=== PATIENT | male | born 1990 | race Caucasian/White ===

== ENCOUNTER 2018-08-03 18:36 | Emergency (ER) | payer SELFPAY ==
[~2018-08-03] VITALS: Ht 188 cm; Wt 63.0 kg
[2018-08-03] MEDS ORDERED: SODIUM CHLORIDE 0.9% 1,000 ML IV ONE (20:33)
[2018-08-03 20:56] LABS: BG BASE EXCESS 2.3 mmol/L (-2.0-2.0); BG CARBOXYHEMOGLOBIN 0.6 % (0.5-1.5); BG DEOXYHEMOGLOBIN 2.8 % (0.0-5.0); BG FRACTION INSPIRED OXYGEN 21; BG HCO3 ACT 26.4 mmol/L (22.0-26.0); BG METHEMOGLOBIN 0.2 % (0.0-1.5); BG OXYGEN SATURATION 97.2 % (92.0-98.5); BG OXYHEMOGLOBIN 96.4 % (94.0-97.0); BG PCO2 39.1 mmHg (35.0-45.0); BG PH 7.447 (7.350-7.450); BG PO2 95.9 mmHg (75.0-100.0); BG SAMPLE SITE RIGHT BRACHIAL; BG TOTAL HEMOGLOBIN 12.1 g/dL (12.0-18.0); BG VENT MODE ROOM AIR
[2018-08-03] MEDS ORDERED: KETOROLAC 30MG/ML VIAL IV ONE (21:15)
[2018-08-03 21:34] LABS: BASOPHILS % 0.3 % (0.0-2.0); HEMATOCRIT. 31.7 % (42.0-52.0); HEMOGLOBIN. 11.3 g/dL (14.0-18.0); LYMPHOCYTES % 28.3 % (20.0-50.0); MEAN CORPUSCULAR HEMOGLOBIN 29.3 pg (28.0-32.0); MEAN CORPUSCULAR VOLUME 82.5 fL (80.0-94.0); MEAN PLATELET VOLUME 7.9 fl (7.4-10.4); MONOCYTES % 9.2 % (2.0-8.0); NEUTROPHILS % 60.2 % (40.0-76.0); PLATELET 328 x1000/uL (130-400); RED BLOOD CELL COUNT 3.84 mill/uL (4.7-6.1); RED CELL DISTRIBUTION WIDTH 13.4 % (11.6-14.6)
[2018-08-03 21:40] LABS: CHLORIDE 93 mEq/L (98-107)
[2018-08-03 21:47] LABS: BETA HYDROXYBUTYRATE 0.3 mMol/L (0.0-0.3)
[2018-08-03 22:24] LABS: CLARITY URINE CLEAR (CLEAR); COLOR URINE YELLOW (YELLOW); KETONES URINE NEGATIVE (NEGATIVE); LEUKOCYTE ESTERASE URINE 2+ (NEGATIVE); NITRITE URINE NEGATIVE (NEGATIVE); OCCULT BLOOD URINE NEGATIVE (NEGATIVE); PROTEIN URINE NEGATIVE (NEGATIVE); SPECIFIC GRAVITY URINE 1.022 (1.005-1.030); UROBILINOGEN URINE 0.2 E.U./dL (0.2-1.0)
[2018-08-03 23:22] VITALS: BP 115/81
== END 2018-08-03 23:22 | disposition home or self-care (01) ==
LOC: ER 18:36
DX: R33.9 Retention of urine, unspecified (principal); E86.0 Dehydration; N13.2 Hydronephrosis with renal and ureteral calculous obstruction; E11.65 Type 2 diabetes mellitus with hyperglycemia; K83.1 Obstruction of bile duct
CPT/HCPCS: 36415; 36600; 51702; 71045; 74176; 80053; 81003; 82010; 82375; 82805; 82962; 84484; 85025; 87086; 93005; 96361; 96374; 99285; J1885; J7030; Z7610

== ENCOUNTER 2020-12-21 12:09 | Inpatient (IN) | payer MEDICAID ==
[~2020-12-21] VITALS: Ht 188 cm; Wt 63.5 kg
[~2020-12-21 12:09] MED LIST: DOCU250C14 PO; FERR325T23 PO
[2020-12-21] MEDS ORDERED: ONDANSETRON HCL 4MG/2ML INJ IV STA (12:28)
[2020-12-21] MEDS ORDERED: SODIUM CHLORIDE 0.9% 1,000 ML IV ONE ×2 (12:30→13:15)
[2020-12-21 13:07] LABS: BASOPHILS % 0.4 % (0.0-2.0); HEMATOCRIT. 25.1 % (42.0-52.0); HEMOGLOBIN. 8.4 g/dL (14.0-18.0); LYMPHOCYTES % 15.3 % (20.0-50.0); MEAN CORPUSCULAR HEMOGLOBIN 29.2 pg (28.0-32.0); MEAN PLATELET VOLUME 7.1 fl (7.4-10.4); MONOCYTES % 6.4 % (2.0-8.0); NEUTROPHILS % 75.9 % (40.0-76.0); PLATELET 244 x1000/uL (130-400); RED BLOOD CELL COUNT 2.88 mill/uL (4.7-6.1); RED CELL DISTRIBUTION WIDTH 15.7 % (11.6-14.6)
[2020-12-21 13:14] LABS: CHLORIDE 108 mEq/L (98-107)
[2020-12-21 13:25] LABS: PROTHROMBIN TIME 10.7 sec (9.6-11.0)
[2020-12-21 14:24] LABS: CLARITY URINE CLOUDY (CLEAR); COLOR URINE YELLOW (YELLOW); KETONES URINE NEGATIVE (NEGATIVE); LEUKOCYTE ESTERASE URINE 3+ (NEGATIVE); NITRITE URINE POSITIVE (NEGATIVE); OCCULT BLOOD URINE 1+ (NEGATIVE); PH URINE 5.5 (4.5-8.0); PROTEIN URINE 1+ (NEGATIVE); SPECIFIC GRAVITY URINE 1.012 (1.005-1.030); UROBILINOGEN URINE 0.2 E.U./dL (0.2-1.0)
[2020-12-21] MEDS ORDERED: CEFTRIAXONE 1 G PREMIX 50 ML IV NR (15:30)
[2020-12-21] MEDS ORDERED: FLUCONAZOLE 100MG TABLET PO NR (15:30)
[2020-12-21] MEDS ORDERED: ONDANSETRON HCL 4MG/2ML INJ IV PRN (18:00)
[2020-12-21] MEDS ORDERED: IPRATROPIUM/ALBUTEROL 0.5-3(2.5)MG/3ML NEB NEB PRN (18:00)
[2020-12-21] MEDS ORDERED: MAGNESIUM/ALUMINUM HYDROXIDE/SIMETHICONE 30ML UDC PO PRN (18:00)
[2020-12-21] MEDS ORDERED: DOCUSATE SODIUM 100MG CAPSULE PO PRN (18:00)
[2020-12-21] MEDS ORDERED: CLONIDINE 0.1MG TABLET PO PRN (18:00)
[2020-12-21] MEDS ORDERED: GUAIFENESIN 200MG/10ML SUGAR FREE UDC PO PRN (18:00)
[2020-12-21] MEDS ORDERED: ACETAMINOPHEN 325MG TABLET PO PRN (18:00)
[2020-12-21] MEDS ORDERED: NITROGLYCERIN 0.4MG TABLET SL SL PRN (18:00)
[2020-12-21] MEDS: INSULIN LISPRO 100 UNITS/ML SUBCUT SCH ×2 (18:30→21:00)
[2020-12-21] MEDS: SODIUM CHLORIDE 0.9% 1,000 ML IV SCH (18:30)
[2020-12-21] MEDS: BLOOD SUGAR DIAGNOSTIC STRIP TEST SCH ×2 (18:39→21:00)
[2020-12-21 18:47] LABS: TOTAL IRON BINDING CAPACITY 286 ug/dL (250-450)
[2020-12-21] MEDS ORDERED: AMPICILLIN SOD/SULBACTAM NA 3 G in SODIUM CHLORIDE 0.9% 100 ML IV SCH (19:00)
[2020-12-21 19:05] LABS: FOLIC ACID (FOLATE) SERUM >20 ng/mL ng/mL (>5.38)
[2020-12-21] MEDS ORDERED: INSULIN GLARGINE UD 100 UNITS/ML SYR SUBCUT SCH (19:15)
[2020-12-21 19:16] LABS: VITAMIN B12 SERUM 419 pg/mL (211-911)
[2020-12-21] MEDS ORDERED: VANCOMYCIN 1 G PREMIX 200 ML IV NR (20:00)
[2020-12-21] MEDS: INSULIN GLARGINE UD 100 UNITS/ML SYR SUBCUT SCH (20:01)
[2020-12-21] MEDS: ENOXAPARIN 30MG/0.3ML SYR SUBCUT SCH (21:00)
[2020-12-21] MEDS: ASCORBIC ACID 500 MG TABLET PO SCH (21:00)
[2020-12-21] MEDS: FAMOTIDINE 20MG TABLET PO SCH (21:00)
[2020-12-21] MEDS ORDERED: ZOLPIDEM TARTRATE 5MG TABLET PO PRN (21:00)
[2020-12-21 23:10] VITALS: BP 112/89
[2020-12-21 23:19] LABS: CREATINE KINASE 69 IU/L (39-308)
[2020-12-22] MEDS ORDERED: GABA-532 PO (01:24)
[2020-12-22] MEDS ORDERED: MIDO10TA PO (01:37)
[2020-12-22] MEDS ORDERED: INSU100I28 SQ (01:40)
[2020-12-22] MEDS ORDERED: INSHUMSS SUBCUT (01:41)
[2020-12-22 04:00] VITALS: BP 101/67
[2020-12-22] MEDS: SODIUM CHLORIDE 0.9% 1,000 ML IV SCH ×2 (04:33→16:08)
[2020-12-22] MEDS: AMPICILLIN SOD/SULBACTAM NA 3 G in SODIUM CHLORIDE 0.9% 100 ML IV SCH ×3 (04:33→17:16)
[2020-12-22] MEDS: DEXTROSE 50% WATER 50ML SYRINGE IV PRN (05:03)
[2020-12-22 06:36] LABS: BASOPHILS % 0.4 % (0.0-2.0); EOSINOPHILS % 2.9 % (0.0-5.0); HEMATOCRIT. 23.9 % (42.0-52.0); HEMOGLOBIN. 7.9 g/dL (14.0-18.0); LYMPHOCYTES % 21.8 % (20.0-50.0); MEAN CORPUSCULAR HEMOGLOBIN 28.7 pg (28.0-32.0); MEAN CORPUSCULAR VOLUME 87.2 fL (80.0-94.0); MEAN PLATELET VOLUME 7.3 fl (7.4-10.4); MONOCYTES % 6.9 % (2.0-8.0); PLATELET 216 x1000/uL (130-400); RED BLOOD CELL COUNT 2.74 mill/uL (4.7-6.1); RED CELL DISTRIBUTION WIDTH 15.8 % (11.6-14.6)
[2020-12-22 06:41] LABS: CHLORIDE 111 mEq/L (98-107)
[2020-12-22 06:47] LABS: PHOSPHORUS 4.1 mg/dL (2.5-4.9)
[2020-12-22 06:50] LABS: CREATINE KINASE 65 IU/L (39-308)
[2020-12-22 06:53] LABS: CREATINE KINASE MB FRACTION 4.5 ng/mL (0.5-3.6)
[2020-12-22] MEDS: INSULIN LISPRO 100 UNITS/ML SUBCUT SCH ×4 (07:30→21:01)
[2020-12-22] MEDS: BLOOD SUGAR DIAGNOSTIC STRIP TEST SCH ×5 (07:30→21:00)
[2020-12-22] MEDS: ASCORBIC ACID 500 MG TABLET PO SCH ×2 (08:23→21:00)
[2020-12-22] MEDS: CHOLECALCIFEROL (D3) 1000 UNIT TABLET PO SCH (08:23)
[2020-12-22] MEDS: ZINC SULFATE 220 MG ( 50 ) CAPSULE PO SCH (08:23)
[2020-12-22 08:54] VITALS: BP 138/93
[2020-12-22] MEDS ORDERED: VANCOMYCIN 1 G PREMIX 200 ML IV SCH (11:00)
[2020-12-22 12:22] VITALS: BP 148/99
[2020-12-22] MEDS: ACETAMINOPHEN 325MG TABLET PO PRN (16:07)
[2020-12-22] MEDS: KETOROLAC 15MG/ML VIAL IV PRN (16:07)
[2020-12-22 16:21] VITALS: BP 153/102
[2020-12-22 17:00] VITALS: BP 148/88
[2020-12-22 20:00] VITALS: BP 105/72
[2020-12-22] MEDS: GABAPENTIN 100MG CAPSULE PO SCH (21:00)
[2020-12-22] MEDS: ENOXAPARIN 30MG/0.3ML SYR SUBCUT SCH (21:00)
[2020-12-22] MEDS: FAMOTIDINE 20MG TABLET PO SCH (21:00)
[2020-12-22] MEDS: INSULIN GLARGINE UD 100 UNITS/ML SYR SUBCUT SCH (21:01)
[2020-12-23] VITALS: BP 110/77
[2020-12-23] MEDS: SODIUM CHLORIDE 0.9% 1,000 ML IV SCH ×3 (00:40→18:04)
[2020-12-23] MEDS: AMPICILLIN SOD/SULBACTAM NA 3 G in SODIUM CHLORIDE 0.9% 100 ML IV SCH ×3 (00:40→12:08)
[2020-12-23 04:00] VITALS: BP 127/85
[2020-12-23] MEDS: GABAPENTIN 100MG CAPSULE PO SCH ×3 (05:47→20:52)
[2020-12-23 05:55] LABS: BASOPHILS % 0.6 % (0.0-2.0); EOSINOPHILS % 3.5 % (0.0-5.0); HEMATOCRIT. 22.9 % (42.0-52.0); HEMOGLOBIN. 7.7 g/dL (14.0-18.0); MEAN CORPUSCULAR HEMOGLOBIN 29.3 pg (28.0-32.0); MEAN CORPUSCULAR VOLUME 87.3 fL (80.0-94.0); MEAN PLATELET VOLUME 7.6 fl (7.4-10.4); MONOCYTES % 6.8 % (2.0-8.0); NEUTROPHILS % 57.1 % (40.0-76.0); PLATELET 228 x1000/uL (130-400); RED BLOOD CELL COUNT 2.62 mill/uL (4.7-6.1)
[2020-12-23 06:18] LABS: CHLORIDE 111 mEq/L (98-107)
[2020-12-23] MEDS: BLOOD SUGAR DIAGNOSTIC STRIP TEST SCH ×4 (06:20→20:52)
[2020-12-23 06:26] LABS: PHOSPHORUS 4.2 mg/dL (2.5-4.9)
[2020-12-23] MEDS: INSULIN LISPRO 100 UNITS/ML SUBCUT SCH ×4 (07:14→20:53)
[2020-12-23] MEDS: ACETAMINOPHEN 325MG TABLET PO PRN ×2 (07:48→13:34)
[2020-12-23] MEDS: KETOROLAC 15MG/ML VIAL IV PRN ×2 (07:48→13:34)
[2020-12-23] MEDS: CHOLECALCIFEROL (D3) 1000 UNIT TABLET PO SCH (07:48)
[2020-12-23] MEDS: ZINC SULFATE 220 MG ( 50 ) CAPSULE PO SCH (07:48)
[2020-12-23] MEDS: ASCORBIC ACID 500 MG TABLET PO SCH ×2 (07:48→20:52)
[2020-12-23 08:00] VITALS: BP 118/85
[2020-12-23 12:00] VITALS: BP 132/87
[2020-12-23 16:00] VITALS: BP 143/100
[2020-12-23] MEDS ORDERED: LEVOFLOXACIN 500MG TABLET PO SCH (16:09)
[2020-12-23 20:00] VITALS: BP 115/68
[2020-12-23] MEDS: FAMOTIDINE 20MG TABLET PO SCH (20:52)
[2020-12-23] MEDS: ENOXAPARIN 30MG/0.3ML SYR SUBCUT SCH (20:53)
[2020-12-23] MEDS: INSULIN GLARGINE UD 100 UNITS/ML SYR SUBCUT SCH (20:55)
[2020-12-24] VITALS: BP 126/78
[2020-12-24 04:00] VITALS: BP 125/88
[2020-12-24] MEDS: DEXTROSE 50% WATER 50ML SYRINGE IV PRN (06:16)
[2020-12-24] MEDS: GABAPENTIN 100MG CAPSULE PO SCH (06:16)
[2020-12-24] MEDS: BLOOD SUGAR DIAGNOSTIC STRIP TEST SCH ×2 (06:17→11:45)
[2020-12-24] MEDS: SODIUM CHLORIDE 0.9% 1,000 ML IV SCH (06:17)
[2020-12-24] MEDS: INSULIN LISPRO 100 UNITS/ML SUBCUT SCH ×2 (07:21→11:47)
[2020-12-24 08:00] VITALS: BP 103/69
[2020-12-24] MEDS: ZINC SULFATE 220 MG ( 50 ) CAPSULE PO SCH (08:02)
[2020-12-24] MEDS: CHOLECALCIFEROL (D3) 1000 UNIT TABLET PO SCH (08:02)
[2020-12-24] MEDS: ASCORBIC ACID 500 MG TABLET PO SCH (08:02)
[2020-12-24] MEDS: KETOROLAC 15MG/ML VIAL IV PRN (08:03)
[2020-12-24] MEDS: ACETAMINOPHEN 325MG TABLET PO PRN (08:03)
[2020-12-24] MEDS ORDERED: LEVOFLOXACIN 250MG TABLET PO SCH (11:00)
[2021-01-05] MEDS ORDERED: LEVO750T46 MT (11:30)
[2021-01-05] MEDS ORDERED: INSU100I28 SQ (11:30)
[2021-01-05] MEDS ORDERED: GABA-532 PO (15:14)
== END 2020-12-24 12:52 | disposition left against medical advice (07) | DRG 720 ==
LOC: ER 12:16 → 6WST 15:49 → ENRESERV 21:10
PROVIDERS: ADMIT Internal Medicine; ATTEND Internal Medicine
DX: A41.9 Sepsis, unspecified organism (principal); R65.20 Severe sepsis without septic shock; N39.0 Urinary tract infection, site not specified; E11.649 Type 2 diabetes mellitus with hypoglycemia without coma; F10.11 Alcohol abuse, in remission; D63.8 Anemia in other chronic diseases classified elsewhere; Z53.29 Procedure and treatment not carried out because of patient's decision for other reasons; Z79.899 Other long term (current) drug therapy; Z79.4 Long term (current) use of insulin; N17.0 Acute kidney failure with tubular necrosis
CPT/HCPCS: 36415; 71045; 80053; 81003; 82550; 82553; 82607; 82746; 82962; 83036; 83540; 83550; 83605; 83735; 84100; 84484; 85025; 87186; 87493; 93005; 93970; 99285; J0295; J0696; J1650; J1815; J1885; J2405; J3370; J7030; J7042; J7050; A4315

== ENCOUNTER 2021-01-02 15:00 | Inpatient (IN) | payer MEDICAID ==
[~2021-01-02] VITALS: Ht 188 cm; Wt 65.3 kg
[~2021-01-02 15:00] MED LIST changes: -DOCU250C14 PO; -FERR325T23 PO; +GABA-532 PO; +INSHUMSS SUBCUT; +INSU100I28 SQ; +MIDO10TA PO
[2021-01-02] MEDS ORDERED: SODIUM CHLORIDE 0.9% 1000ML BAG (SEPSIS BOLUS) IV ONE (15:45)
[2021-01-02 16:02] LABS: BASOPHILS % 0.7 % (0.0-2.0); EOSINOPHILS % 2.5 % (0.0-5.0); HEMATOCRIT. 24.7 % (42.0-52.0); HEMOGLOBIN. 7.9 g/dL (14.0-18.0); LYMPHOCYTES % 21.9 % (20.0-50.0); MEAN CORPUSCULAR HEMOGLOBIN 28.8 pg (28.0-32.0); MEAN CORPUSCULAR VOLUME 89.8 fL (80.0-94.0); MEAN PLATELET VOLUME 7.6 fl (7.4-10.4); NEUTROPHILS % 70.9 % (40.0-76.0); PLATELET 239 x1000/uL (130-400); RED BLOOD CELL COUNT 2.75 mill/uL (4.7-6.1); RED CELL DISTRIBUTION WIDTH 16.6 % (11.6-14.6)
[2021-01-02 16:05] LABS: CHLORIDE 115 mEq/L (98-107)
[2021-01-02 16:06] LABS: CLARITY URINE CLOUDY (CLEAR); COLOR URINE YELLOW (YELLOW); KETONES URINE NEGATIVE (NEGATIVE); LEUKOCYTE ESTERASE URINE 3+ (NEGATIVE); NITRITE URINE POSITIVE (NEGATIVE); OCCULT BLOOD URINE 2+ (NEGATIVE); PROTEIN URINE 3+ (NEGATIVE); SPECIFIC GRAVITY URINE 1.014 (1.005-1.030); UROBILINOGEN URINE 0.2 E.U./dL (0.2-1.0)
[2021-01-02] MEDS ORDERED: VANCOMYCIN 1 G PREMIX 200 ML IV ONE (16:15)
[2021-01-02] MEDS ORDERED: LEVOFLOXACIN 750MG PREMIX 150 ML IV ONE (16:15)
[2021-01-02] MEDS ORDERED: PIPERACILLIN/TAZ 3.375G PREMIX 50 ML IV ONE (16:15)
[2021-01-02] MEDS ORDERED: ONDANSETRON HCL 4MG/2ML INJ IV PRN (18:45)
[2021-01-02] MEDS ORDERED: ACETAMINOPHEN 325MG TABLET PO PRN (18:45)
[2021-01-02] MEDS ORDERED: DEXTROSE 50% WATER 50ML SYRINGE IV PRN (18:45)
[2021-01-02] MEDS ORDERED: CEFTRIAXONE 1 G PREMIX 50 ML IV SCH (19:00)
[2021-01-02] MEDS: SODIUM CHLORIDE 0.9% 1,000 ML IV SCH (20:21)
[2021-01-02 20:49] LABS: TOTAL IRON BINDING CAPACITY 313 ug/dL (250-450)
[2021-01-02] MEDS ORDERED: TRAZODONE HCL 50MG TABLET PO PRN (21:00)
[2021-01-02 21:09] LABS: FERRITIN 169 ng/mL (22-322)
[2021-01-02 21:11] LABS: FOLIC ACID (FOLATE) SERUM >20 ng/mL ng/mL (>5.38)
[2021-01-02 21:22] LABS: VITAMIN B12 SERUM 461 pg/mL (211-911)
[2021-01-02] MEDS: BLOOD SUGAR DIAGNOSTIC STRIP TEST SCH (21:35)
[2021-01-02] MEDS: HEPARIN 5000 UNITS/ML VIAL SUBCUT SCH (21:42)
[2021-01-02] MEDS: INSULIN LISPRO 100 UNITS/ML SUBCUT SCH (21:42)
[2021-01-02 23:05] VITALS: BP 103/58
[2021-01-03] VITALS (7 sets, daily range): BP systolic 72–121; BP diastolic 39–84
[2021-01-03] MEDS: SODIUM CHLORIDE 0.9% 1,000 ML IV SCH (06:15)
[2021-01-03] MEDS: BLOOD SUGAR DIAGNOSTIC STRIP TEST SCH ×4 (06:16→20:31)
[2021-01-03] MEDS: INSULIN LISPRO 100 UNITS/ML SUBCUT SCH ×4 (07:57→21:18)
[2021-01-03] MEDS: HEPARIN 5000 UNITS/ML VIAL SUBCUT SCH ×2 (09:00→20:36)
[2021-01-03 09:27] LABS: BASOPHILS % 0.8 % (0.0-2.0); EOSINOPHILS % 3.6 % (0.0-5.0); HEMATOCRIT. 24.3 % (42.0-52.0); HEMOGLOBIN. 7.8 g/dL (14.0-18.0); LYMPHOCYTES % 24.9 % (20.0-50.0); MEAN CORPUSCULAR HEMOGLOBIN 28.8 pg (28.0-32.0); MEAN CORPUSCULAR VOLUME 89.1 fL (80.0-94.0); MEAN PLATELET VOLUME 7.9 fl (7.4-10.4); MONOCYTES % 5.4 % (2.0-8.0); NEUTROPHILS % 65.3 % (40.0-76.0); PLATELET 215 x1000/uL (130-400); RED BLOOD CELL COUNT 2.73 mill/uL (4.7-6.1); RED CELL DISTRIBUTION WIDTH 16.6 % (11.6-14.6)
[2021-01-03 09:38] LABS: CHLORIDE 118 mEq/L (98-107)
[2021-01-03] MEDS ORDERED: INSULIN GLARGINE UD 100 UNITS/ML SYR SUBCUT NR (15:00)
[2021-01-03] MEDS ORDERED: MORPHINE SULFATE 2 MG/ML CPJ (NOT FOR IM USE) IV NR (15:15)
[2021-01-03] MEDS ORDERED: SODIUM BICARBONATE 8.4% 1 MEQ/ML 50ML SYR IV NR (15:45)
[2021-01-03 16:28] LABS: BG BASE EXCESS -16.3 mmol/L (-2.0-2.0); BG CARBOXYHEMOGLOBIN 0.3 % (0.5-1.5); BG DEOXYHEMOGLOBIN 2.5 % (0.0-5.0); BG FRACTION INSPIRED OXYGEN 21; BG HCO3 ACT 11.1 mmol/L (22.0-26.0); BG METHEMOGLOBIN 0.5 % (0.0-1.5); BG OXYGEN SATURATION 97.5 % (92.0-98.5); BG OXYHEMOGLOBIN 96.7 % (94.0-97.0); BG PCO2 31.9 mmHg (35.0-45.0); BG PH 7.158 (7.350-7.450); BG PO2 110.3 mmHg (75.0-100.0); BG SAMPLE SITE RIGHT BRACHIAL; BG TOTAL HEMOGLOBIN 7.8 g/dL (12.0-18.0); BG VENT MODE ROOM AIR
[2021-01-03] MEDS ORDERED: LIDOCAINE HCL 2% JELLY 5ML MM NR (16:30)
[2021-01-03] MEDS: CITRIC ACID/SODIUM CITRATE SOLN 30ML UDC PO SCH ×2 (16:50→17:00)
[2021-01-03] MEDS: CEFTRIAXONE 1,000 MG in DEXTROSE 5% WATER 50 ML IV SCH (16:50)
[2021-01-03] MEDS: SODIUM BICARBONATE 150 MEQ in DEXTROSE 5% WATER 1,000 ML IV SCH (20:31)
[2021-01-04] VITALS (11 sets, daily range): BP systolic 72–145; BP diastolic 44–91
[2021-01-04] MEDS: BLOOD SUGAR DIAGNOSTIC STRIP TEST SCH ×4 (06:12→21:51)
[2021-01-04 06:38] LABS: CHLORIDE 113 mEq/L (98-107)
[2021-01-04 06:40] LABS: BASOPHILS % 0.9 % (0.0-2.0); EOSINOPHILS % 4.2 % (0.0-5.0); MEAN CORPUSCULAR HEMOGLOBIN 29.5 pg (28.0-32.0); MEAN CORPUSCULAR VOLUME 88.9 fL (80.0-94.0); MEAN PLATELET VOLUME 8.1 fl (7.4-10.4); MONOCYTES % 7.7 % (2.0-8.0); NEUTROPHILS % 52.2 % (40.0-76.0); PLATELET 203 x1000/uL (130-400); RED BLOOD CELL COUNT 2.35 mill/uL (4.7-6.1); RED CELL DISTRIBUTION WIDTH 16.1 % (11.6-14.6)
[2021-01-04 07:31] LABS: HEMATOCRIT. 20.9 % (42.0-52.0)
[2021-01-04] MEDS: CITRIC ACID/SODIUM CITRATE SOLN 30ML UDC PO SCH ×3 (08:42→18:29)
[2021-01-04] MEDS: INSULIN LISPRO 100 UNITS/ML SUBCUT SCH ×4 (08:46→21:53)
[2021-01-04] MEDS: HEPARIN 5000 UNITS/ML VIAL SUBCUT SCH ×2 (08:47→21:51)
[2021-01-04] MEDS ORDERED: INSULIN GLARGINE UD 100 UNITS/ML SYR SUBCUT SCH (10:00)
[2021-01-04] MEDS ORDERED: INSULIN GLARGINE UD 100 UNITS/ML SYR SUBCUT NR (13:00)
[2021-01-04] MEDS: SODIUM BICARBONATE 150 MEQ in DEXTROSE 5% WATER 1,000 ML IV SCH (14:11)
[2021-01-04] MEDS: CEFTRIAXONE 1,000 MG in DEXTROSE 5% WATER 50 ML IV SCH (14:11)
[2021-01-04] MEDS ORDERED: LEVOFLOXACIN 250MG TABLET PO SCH (18:30)
[2021-01-04 20:46] LABS: HEMATOCRIT 25.8 % (42.0-52.0); HEMOGLOBIN 8.7 g/dL (14.0-18.0)
[2021-01-04 20:51] LABS: PROTHROMBIN TIME 10.7 sec (9.6-11.0)
[2021-01-04] MEDS ORDERED: GABAPENTIN 300MG CAPSULE PO SCH (21:00)
[2021-01-05] VITALS (8 sets, daily range): BP systolic 64–193; BP diastolic 26–109
[2021-01-05] MEDS: INSULIN LISPRO 100 UNITS/ML SUBCUT SCH ×3 (06:25→16:56)
[2021-01-05] MEDS: BLOOD SUGAR DIAGNOSTIC STRIP TEST SCH ×3 (06:26→16:56)
[2021-01-05] MEDS: SODIUM BICARBONATE 150 MEQ in DEXTROSE 5% WATER 1,000 ML IV SCH (06:26)
[2021-01-05 06:57] LABS: CHLORIDE 108 mEq/L (98-107)
[2021-01-05 07:05] LABS: PHOSPHORUS 4.7 mg/dL (2.5-4.9)
[2021-01-05 07:22] LABS: BASOPHILS % 0.8 % (0.0-2.0); EOSINOPHILS % 5.1 % (0.0-5.0); HEMATOCRIT. 25.8 % (42.0-52.0); HEMOGLOBIN. 8.6 g/dL (14.0-18.0); MEAN CORPUSCULAR HEMOGLOBIN 29.5 pg (28.0-32.0); MEAN CORPUSCULAR VOLUME 88.7 fL (80.0-94.0); MEAN PLATELET VOLUME 8.3 fl (7.4-10.4); MONOCYTES % 7.9 % (2.0-8.0); NEUTROPHILS % 48.2 % (40.0-76.0); PLATELET 201 x1000/uL (130-400); RED CELL DISTRIBUTION WIDTH 15.8 % (11.6-14.6)
[2021-01-05] MEDS: CITRIC ACID/SODIUM CITRATE SOLN 30ML UDC PO SCH ×3 (09:10→16:55)
[2021-01-05] MEDS: HEPARIN 5000 UNITS/ML VIAL SUBCUT SCH (09:10)
[2021-01-05] MEDS ORDERED: SODIUM CHLORIDE 0.9% 1,000 ML IV SCH (10:00)
[2021-01-05] MEDS ORDERED: INSULIN GLARGINE UD 100 UNITS/ML SYR SUBCUT SCH (10:00)
[2021-01-05] MEDS ORDERED: LEVO750T46 MT (11:30)
[2021-01-05] MEDS ORDERED: INSU100I28 SQ (11:30)
[2021-01-05] MEDS ORDERED: MIDODRINE HCL 5MG TABLET PO SCH (13:00)
[2021-01-05] MEDS: MIDODRINE HCL 5MG TABLET PO SCH ×2 (13:05→16:55)
[2021-01-05] MEDS ORDERED: GABA-532 PO (15:14)
== END 2021-01-05 19:00 | disposition home or self-care (01) | DRG 720 ==
LOC: ER 15:00 → 6WST 17:37 → ENRESERV 21:44
PROVIDERS: ADMIT Internal Medicine; ATTEND Internal Medicine
PROC: 30233N1 Transfusion of Nonautologous Red Blood Cells into Peripheral Vein, Percutaneous Approach (ICD-10-PCS; principal; 2021-01-04)
DX: A41.59 Other Gram-negative sepsis (principal); R65.21 Severe sepsis with septic shock; E44.0 Moderate protein-calorie malnutrition; E11.22 Type 2 diabetes mellitus with diabetic chronic kidney disease; E11.43 Type 2 diabetes mellitus with diabetic autonomic (poly)neuropathy; F10.21 Alcohol dependence, in remission; N18.4 Chronic kidney disease, stage 4 (severe); K31.84 Gastroparesis; I12.9 Hypertensive chronic kidney disease with stage 1 through stage 4 chronic kidney disease, or unspecified chronic kidney disease; N13.6 Pyonephrosis; N13.8 Other obstructive and reflux uropathy; N31.9 Neuromuscular dysfunction of bladder, unspecified; E87.5 Hyperkalemia; D63.8 Anemia in other chronic diseases classified elsewhere; B37.49 Other urogenital candidiasis; D72.819 Decreased white blood cell count, unspecified; I95.1 Orthostatic hypotension; K52.9 Noninfective gastroenteritis and colitis, unspecified; R33.8 Other retention of urine; E87.2 Acidosis; G61.0 Guillain-Barre syndrome; Z79.4 Long term (current) use of insulin; Z79.899 Other long term (current) drug therapy; Z87.440 Personal history of urinary (tract) infections; Z82.49 Family history of ischemic heart disease and other diseases of the circulatory system; Z83.3 Family history of diabetes mellitus; Z68.1 Body mass index [BMI] 19.9 or less, adult; Z96.0 Presence of urogenital implants; N17.0 Acute kidney failure with tubular necrosis
CPT/HCPCS: 36415; 36600; 70551; 71045; 72141; 76770; 80053; 81003; 82375; 82607; 82728; 82746; 82805; 82962; 83036; 83540; 83550; 83605; 83735; 84100; 84484; 85014; 85018; 85025; 85044; 85049; 85384; 86850; 86900; 86920; 87077; 87106; 87186; 93005; 96365; 99285; J0696; J1644; J1815; J1956; J2543; J3370; J3490; J7030; J7060; J7070; P9016; A4315

== ENCOUNTER 2022-05-20 05:30 | Inpatient (IN) | payer MEDICAID ==
[~2022-05-20] VITALS: Ht 188 cm; Wt 63.5 kg
[~2022-05-20 05:30] MED LIST changes: +LEVO750T46 MT
[2022-05-20] MEDS ORDERED: PIPERACILLIN/TAZ 3.375G PREMIX 50 ML IV ONE (06:45)
[2022-05-20] MEDS ORDERED: SODIUM CHLORIDE 0.9% 1000ML BAG (SEPSIS BOLUS) IV ONE (06:45)
[2022-05-20] MEDS ORDERED: VANCOMYCIN 1G PREMIX 200 ML IV ONE (06:45)
[2022-05-20 07:43] LABS: CHLORIDE 105 mEq/L (98-107)
[2022-05-20 07:46] LABS: PROTHROMBIN TIME 10.8 sec (9.6-11.0)
[2022-05-20 07:48] LABS: BASOPHILS % 0.7 % (0.0-2.0); EOSINOPHILS % 3.4 % (0.0-5.0); HEMATOCRIT. 40.4 % (42.0-52.0); HEMOGLOBIN. 12.5 g/dL (14.0-18.0); LYMPHOCYTES % 21.3 % (20.0-50.0); MEAN CORPUSCULAR HEMOGLOBIN 30.2 pg (28.0-32.0); MEAN CORPUSCULAR VOLUME 97.4 fL (80.0-94.0); MEAN PLATELET VOLUME 8.7 fl (7.4-10.4); MONOCYTES % 7.3 % (2.0-8.0); NEUTROPHILS % 67.3 % (40.0-76.0); PLATELET 187 x1000/uL (130-400); RED BLOOD CELL COUNT 4.15 mill/uL (4.7-6.1); RED CELL DISTRIBUTION WIDTH 17.4 % (11.6-14.6)
[2022-05-20] MEDS ORDERED: FUROSEMIDE 100MG/10ML VIAL IV STA (08:11)
[2022-05-20] MEDS ORDERED: INSULIN REGULAR (HUMULIN R) 300UNITS/3ML VIAL IV ONE (08:15)
[2022-05-20] MEDS ORDERED: DEXTROSE 50% WATER 50ML SYRINGE IV ONE (08:15)
[2022-05-20] MEDS ORDERED: ALBUTEROL (0.083%) 2.5MG/3ML NEB HHN ONE (08:15)
[2022-05-20] MEDS ORDERED: SODIUM BICARBONATE 8.4% 1 MEQ/ML 50ML SYR IV ONE (08:15)
[2022-05-20] MEDS ORDERED: CALCIUM CHLORIDE 1GM/10ML SYR IV ONE (08:15)
[2022-05-20] MEDS ORDERED: VANCOMYCIN 1GM PMX (XELLIA) 200 ML IV NR (09:00)
[2022-05-20] MEDS ORDERED: PIPERACILLIN/TAZ 3.375G PREMIX 50 ML IV NR (09:00)
[2022-05-20 12:31] LABS: HEPATITIS B SURFACE ANTIGEN NEGATIVE
[2022-05-20 12:56] LABS: CLARITY URINE CLOUDY (CLEAR); COLOR URINE YELLOW (YELLOW); KETONES URINE TRACE (NEGATIVE); LEUKOCYTE ESTERASE URINE 2+ (NEGATIVE); NITRITE URINE NEGATIVE (NEGATIVE); OCCULT BLOOD URINE 1+ (NEGATIVE); PROTEIN URINE 2+ (NEGATIVE); SPECIFIC GRAVITY URINE 1.015 (1.005-1.030); UROBILINOGEN URINE 0.2 E.U./dL (0.2-1.0)
[2022-05-20] MEDS ORDERED: TRAMADOL 50MG TABLET PO PRN (13:15)
[2022-05-20] MEDS ORDERED: DIPHENHYDRAMINE 50MG/ML VIAL IV PRN (13:15)
[2022-05-20] MEDS ORDERED: MAGNESIUM/ALUMINUM HYDROXIDE/SIMETHICONE 30ML UDC PO PRN (13:15)
[2022-05-20] MEDS ORDERED: ONDANSETRON HCL 4MG/2ML INJ IV PRN (13:15)
[2022-05-20] MEDS ORDERED: DOCUSATE SODIUM 100MG CAPSULE PO PRN (13:15)
[2022-05-20] MEDS ORDERED: ENOXAPARIN 40MG/0.4ML SYR SUBCUT SCH (13:15)
[2022-05-20] MEDS ORDERED: GUAIFENESIN 200MG/10ML SUGAR FREE UDC PO PRN (13:15)
[2022-05-20] MEDS ORDERED: ACETAMINOPHEN 325MG TABLET PO PRN (13:15)
[2022-05-20] MEDS ORDERED: CEFTRIAXONE 1 G PREMIX 50 ML IV SCH (15:00)
[2022-05-20] MEDS: ENOXAPARIN 30MG/0.3ML SYR SUBCUT SCH (17:40)
[2022-05-20 21:30] VITALS: BP 134/87
[2022-05-20] MEDS: GABAPENTIN 300MG CAPSULE PO SCH (22:17)
[2022-05-20 22:30] VITALS: BP 134/87
[2022-05-21] VITALS: BP 122/76
[2022-05-21 04:00] VITALS: BP 130/90
[2022-05-21 06:16] LABS: BASOPHILS % 0.8 % (0.0-2.0); EOSINOPHILS % 5.5 % (0.0-5.0); HEMATOCRIT. 35.6 % (42.0-52.0); HEMOGLOBIN. 11.9 g/dL (14.0-18.0); LYMPHOCYTES % 21.2 % (20.0-50.0); MEAN CORPUSCULAR HEMOGLOBIN 30.7 pg (28.0-32.0); MEAN CORPUSCULAR VOLUME 92.2 fL (80.0-94.0); MEAN PLATELET VOLUME 8.4 fl (7.4-10.4); NEUTROPHILS % 64.5 % (40.0-76.0); PLATELET 141 x1000/uL (130-400); RED BLOOD CELL COUNT 3.86 mill/uL (4.7-6.1); RED CELL DISTRIBUTION WIDTH 17.1 % (11.6-14.6)
[2022-05-21] MEDS ORDERED: DEXTROSE 50% WATER 50ML SYRINGE IV PRN (07:15)
[2022-05-21 07:52] VITALS: BP 145/95
[2022-05-21] MEDS: ENOXAPARIN 30MG/0.3ML SYR SUBCUT SCH (08:12)
[2022-05-21] MEDS: BLOOD SUGAR DIAGNOSTIC STRIP TEST SCH ×4 (08:17→20:24)
[2022-05-21] MEDS: INSULIN LISPRO 100 UNITS/ML SUBCUT SCH ×4 (08:18→20:24)
[2022-05-21 09:18] LABS: CHLORIDE 104 mEq/L (98-107)
[2022-05-21 09:33] LABS: PHOSPHORUS 7.9 mg/dL (2.5-4.9)
[2022-05-21] MEDS ORDERED: NALOXONE HCL 0.4MG/ML VIAL IV PRN (11:15)
[2022-05-21 12:18] VITALS: BP 117/75
[2022-05-21] MEDS ORDERED: CEFTRIAXONE 1,000 MG in DEXTROSE 5% WATER 50 ML IV SCH (13:00)
[2022-05-21 15:20] VITALS: BP 133/85
[2022-05-21 20:00] VITALS: BP 134/86
[2022-05-21] MEDS: GABAPENTIN 300MG CAPSULE PO SCH (20:24)
[2022-05-21] MEDS ORDERED: GABAPENTIN 300MG CAPSULE PO SCH (21:00)
[2022-05-21] MEDS ORDERED: INSULIN GLARGINE 100 UNITS/ML SUBCUT SCH (22:00)
[2022-05-22] VITALS: BP 154/82
[2022-05-22 04:00] VITALS: BP 130/83
[2022-05-22] MEDS: BLOOD SUGAR DIAGNOSTIC STRIP TEST SCH ×2 (06:40→11:18)
[2022-05-22] MEDS: INSULIN LISPRO 100 UNITS/ML SUBCUT SCH ×2 (06:41→11:25)
[2022-05-22 08:00] VITALS: BP 133/86
[2022-05-22] MEDS: ENOXAPARIN 30MG/0.3ML SYR SUBCUT SCH (08:12)
[2022-05-22 08:13] LABS: BASOPHILS % 1.1 % (0.0-2.0); EOSINOPHILS % 7.3 % (0.0-5.0); HEMATOCRIT. 33.6 % (42.0-52.0); HEMOGLOBIN. 11.1 g/dL (14.0-18.0); MEAN CORPUSCULAR HEMOGLOBIN 30.7 pg (28.0-32.0); MEAN CORPUSCULAR VOLUME 92.9 fL (80.0-94.0); MEAN PLATELET VOLUME 8.4 fl (7.4-10.4); MONOCYTES % 10.5 % (2.0-8.0); NEUTROPHILS % 52.1 % (40.0-76.0); PLATELET 129 x1000/uL (130-400); RED BLOOD CELL COUNT 3.62 mill/uL (4.7-6.1)
[2022-05-22 10:21] VITALS: BP 130/80
== END 2022-05-22 11:50 | disposition home or self-care (01) | DRG 425 ==
LOC: ER 05:30 → 8WST 08:16 → ENRESERV 15:34 → CANRESERV 15:34 → ENRESERV 17:28 → 8WST 22:08
PROVIDERS: ADMIT Hospitalist; ATTEND Hospitalist
PROC: 5A1D70Z Performance of Urinary Filtration, Intermittent, Less than 6 Hours Per Day (ICD-10-PCS; principal; 2022-05-20)
DX: E87.5 Hyperkalemia (principal); D63.8 Anemia in other chronic diseases classified elsewhere; E87.2 Acidosis; I95.9 Hypotension, unspecified; E83.39 Other disorders of phosphorus metabolism; E83.41 Hypermagnesemia; E83.51 Hypocalcemia; N18.6 End stage renal disease; Z20.822 Contact with and (suspected) exposure to COVID-19; E87.1 Hypo-osmolality and hyponatremia; N39.0 Urinary tract infection, site not specified; N31.9 Neuromuscular dysfunction of bladder, unspecified; K52.9 Noninfective gastroenteritis and colitis, unspecified; E11.42 Type 2 diabetes mellitus with diabetic polyneuropathy; R82.71 Bacteriuria; R74.01 Elevation of levels of liver transaminase levels; E11.22 Type 2 diabetes mellitus with diabetic chronic kidney disease; Z99.2 Dependence on renal dialysis; Z87.440 Personal history of urinary (tract) infections; Z79.4 Long term (current) use of insulin; Z83.3 Family history of diabetes mellitus
CPT/HCPCS: 36415; 71045; 80048; 80053; 81003; 82962; 83036; 83605; 83735; 84100; 84145; 84484; 85025; 86705; 86709; 86803; 87340; 87426; 93005; 99291; C9803; J0696; J1650; J1815; J1940; J2543; J3370; J3490; J7030; J7060

== ENCOUNTER 2023-06-08 15:02 | Emergency (ER) | payer MEDICAID ==
[~2023-06-08] VITALS: Ht 188 cm; Wt 64.0 kg
[~2023-06-08 15:02] MED LIST changes: -LEVO750T46 MT; +LEVO750T68 MT
[2023-06-08 15:07] VITALS: BP 112/67; RESP 20; TEMP 98.6; O2SAT 100
[2023-06-08 15:34] VITALS: PULSE 76
[2023-06-08 15:57] LABS: BASOPHILS % 0.3 % (0.0-2.0); EOSINOPHILS % 0.8 % (0.0-5.0); HEMATOCRIT. 31.4 % (42.0-52.0); HEMOGLOBIN. 10.2 g/dL (14.0-18.0); LYMPHOCYTES % 9.5 % (20.0-50.0); MEAN CORPUSCULAR HEMOGLOBIN 29.4 pg (28.0-32.0); MEAN CORPUSCULAR HGB CONC 32.5 g/dL (31.0-37.0); MEAN CORPUSCULAR VOLUME 90.4 fL (80.0-94.0); MEAN PLATELET VOLUME 9.2 fl (7.4-10.4); MONOCYTES % 5.1 % (2.0-8.0); NEUTROPHILS % 84.3 % (40.0-76.0); PLATELET 105 x1000/uL (130-400); RED BLOOD CELL COUNT 3.47 mill/uL (4.7-6.1); RED CELL DISTRIBUTION WIDTH 17.5 % (11.6-14.6); WHITE BLOOD COUNT 7.2 x1000/uL (4.5-11.0)
[2023-06-08 16:04] LABS: CHLORIDE 110 mEq/L (98-107); INDEX HEMOLYSI 2 (1-3); INDEX ICTERIC 1 (1-4); INDEX LIPEMIC 1 (1-3); POTASSIUM 4.2 mEq/L (3.5-5.1); SODIUM 138 mEq/L (136-145)
[2023-06-08 16:17] LABS: ALANINE AMINOTRANSFERASE 13 IU/L (13-61); ALBUMIN 2.9 g/dL (3.4-5.0); ASPARTATE AMINOTRANSFERASE 13 IU/L (15-37); BILIRUBIN TOTAL 0.7 mg/dL (0.1-1.0); CALCIUM 7.4 mg/dL (8.5-10.1); CARBON DIOXIDE 18 mEq/L (21-32); GLUCOSE 222 mg/dL (70-105); PROTEIN TOTAL 6.5 g/dL (6.0-8.3); UREA NITROGEN BLOOD 28 mg/dL (7-21)
[2023-06-08 16:31] LABS: CREATININE 10.6 mg/dL (0.6-1.3)
[2023-06-08] MEDS ORDERED: FAMOTIDINE 20MG TABLET PO NR (20:00)
[2023-06-08] MEDS ORDERED: ONDANSETRON HCL 4MG TABLET PO NR (20:00)
[2023-06-08] MEDS ORDERED: ASPI81TA43 PO (20:05)
[2023-06-08] MEDS ORDERED: PATI8.4P PO (20:05)
[2023-06-08] MEDS ORDERED: GABA300T25 PO (20:05)
[2023-06-08] MEDS ORDERED: CALC667C PO (20:05)
[2023-06-08] MEDS ORDERED: AMIT25TA9 PO (20:05)
[2023-06-08] MEDS ORDERED: INSU100I13 SUBCUT (20:05)
== END 2023-06-08 20:34 | disposition home or self-care (01) ==
LOC: ER 15:02
DX: K52.9 Noninfective gastroenteritis and colitis, unspecified (principal); N13.30 Unspecified hydronephrosis; K86.1 Other chronic pancreatitis; E11.9 Type 2 diabetes mellitus without complications; D64.9 Anemia, unspecified; N18.6 End stage renal disease; Z99.2 Dependence on renal dialysis; Z98.890 Other specified postprocedural states
CPT/HCPCS: 99285; 74176; 76705; 71045; 80053; 83690; 85025; 36415; 93005; Q0162